=== PATIENT | female | born 1980 | race Two or more races ===

== ENCOUNTER 2020-07-10 08:15 | Inpatient (IN) | payer OTHER ==
[~2020-07-10] VITALS: Ht 172.7 cm; Wt 104.3 kg
[2020-07-19] MEDS ORDERED: ULTRAM50 MG PO (11:40)
[2020-07-19] MEDS ORDERED: KETO10TA2 PO (11:40)
== END 2020-07-19 13:43 | disposition home or self-care (01) | DRG 337 ==
LOC: SURH 07-16 08:15 → O/R 07-16 08:42 → SURG 07-16 08:42 → SURH 07-16 10:00 → O/R 07-16 15:31 → SURG 07-16 17:13
PROVIDERS: ADMIT Surgery; ATTEND Surgery
PROC: 0DNW0ZZ Release Peritoneum, Open Approach (ICD-10-PCS; 2020-07-16)
PROC: 0WJF4ZZ Inspection of Abdominal Wall, Percutaneous Endoscopic Approach (ICD-10-PCS; 2020-07-16)
PROC: 0WUF0JZ Supplement Abdominal Wall with Synthetic Substitute, Open Approach (ICD-10-PCS; principal; 2020-07-16 10:00)
DX: K43.0 Incisional hernia with obstruction, without gangrene (principal); K42.0 Umbilical hernia with obstruction, without gangrene; N99.4 Postprocedural pelvic peritoneal adhesions; N73.6 Female pelvic peritoneal adhesions (postinfective); R53.81 Other malaise; Z53.31 Laparoscopic surgical procedure converted to open procedure; E78.5 Hyperlipidemia, unspecified; E66.8 Other obesity; D64.9 Anemia, unspecified